=== PATIENT | female | born 1985 | race Caucasian/White ===

== ENCOUNTER 2022-02-16 16:01 | Emergency (ER) | payer MEDICAID ==
[~2022-02-16] VITALS: Ht 160 cm; Wt 81.6 kg
[2022-02-16 16:16] VITALS: BP_SYST 159
--- NOTE | 2022-02-16 16:21 | NUR ---
BIB SELF ABD PAIN X1 WEEK MD AT BEDSIDE. TRIAGE COMPLETED
[2022-02-16 16:37] LABS: BILIRUBIN,URINE NEGATIVE (NEGATIVE); BLOOD, URINE 3+ (NEGATIVE); COLOR,URINE YELLOW (YELLOW); GLUCOSE,URINE NEGATIVE (NEGATIVE); KETONES,URINE NEGATIVE (NEGATIVE); LEUKOCYTE ESTERASE ,URINE TRACE (NEGATIVE); NITRITE, URINE NEGATIVE (NEGATIVE); PH,URINE 6.5 (5.0-8.0); PROTEIN URINE 1+ (NEGATIVE)
[2022-02-16 16:47] LABS: CLARITY/URINE HAZY (CLEAR)
[2022-02-16 16:48] LABS: BACTERIA,URINE FEW /HPF (None Seen); MUCUS,URINE None Seen /LPF (None Seen); RBC,URINE >100 /HPF (0-3)
[2022-02-16 17:22] LABS: BASOPHILS # (AUTO) 0.2 K/uL (0.0-0.2); BASOPHILS % (AUTO) 2.2 % (0.0-2.0); EOSINOPHILS # (AUTO) 0.3 K/uL (0.0-0.4); EOSINOPHILS % (AUTO) 3.7 % (0.0-4.0); HEMATOCRIT 36.3 % (36-48); HEMOGLOBIN 12.5 g/dL (12.0-16.0); LYMPHOCYTES # (AUTO) 1.2 K/uL (1.0-5.5); LYMPHOCYTES % (AUTO) 13.7 % (20.5-51.5); MEAN CORPUSCULAR HEMOGLOBIN 27 pg (27-31); MEAN CORPUSCULAR HGB CONC 35 % (32-36); MEAN CORPUSCULAR VOLUME 77 fL (79.0-98.0); MONOCYTES # (AUTO) 0.5 K/uL (0.0-1.0); MONOCYTES % (AUTO) 5.8 % (1.7-9.3); NEUTROPHILS # (AUTO) 6.4 K/uL (1.8-7.7); NEUTROPHILS % (AUTO) 74.6 % (40.0-70.0); PLATELET COUNT (AUTO) 275 K/uL (130-430); RED BLOOD CELL COUNT(AUTO) 4.68 MIL/uL (4.2-6.2); RED CELL DISTRIBUTION WIDTH 15.1 % (9.0-15.0); WHITE BLOOD COUNT (AUTO) 8.5 K/uL (4.8-10.8)
[2022-02-16 17:25] LABS: CREATININE 0.86 mg/dL (0.55-1.30); POTASSIUM 3.7 mmol/L (3.5-5.1)
[2022-02-16 17:30] LABS: ALBUMIN 3.4 g/dL (3.4-4.8); TOTAL BILIRUBIN 0.2 mg/dL (0.0-1.0)
[2022-02-16] MEDS ORDERED: CEPH-548 PO (18:56)
[2022-02-16 19:03] VITALS: BP_SYST 133
--- NOTE | 2022-02-16 19:04 | NUR ---
Patient given written and verbal discharge instructions and verbalizes understanding. AMBER BOWIE MD discussed with patient the results and treatment provided. Patient in stable condition. ID arm band removed. Rx of KEFLEX given. Patient educated on pain management and to follow up with PMD. Pain Scale 0. Opportunity for questions provided and answered. Medication side effect fact sheet provided.
== END 2022-02-16 19:04 | disposition home or self-care (01) ==
LOC: SED 16:01
DX: R10.32 Left lower quadrant pain (principal); E66.9 Obesity, unspecified; Z68.31 Body mass index [BMI] 31.0-31.9, adult
CPT/HCPCS: 36415; 71045; 74021; 80053; 81000; 81025; 83690; 85025; 99284

== ENCOUNTER 2023-11-21 07:23 | Emergency (ER) | payer SELFPAY ==
[~2023-11-21] VITALS: Ht 160 cm; Wt 82.6 kg
[~2023-11-21 07:23] MED LIST: CEPH-548 PO
[2023-11-21 07:30] VITALS: BP_SYST 167; PULSE 94; RESP 17; TEMP 98; O2SAT 98
[2023-11-21] MEDS ORDERED: AUG875 PO (09:22)
[2023-11-21] MEDS ORDERED: MAG360OR3 PO (09:22)
[2023-11-21] MEDS ORDERED: AMLO5TAB4 PO (09:31)
== END 2023-11-21 09:27 | disposition home or self-care (01) ==
LOC: SED 07:23
DX: K20.90 Esophagitis, unspecified without bleeding (principal); R07.0 Pain in throat; Z79.899 Other long term (current) drug therapy
CPT/HCPCS: 71046-TC; 99283